=== PATIENT | female | born 1935 | race Asian ===

== ENCOUNTER 2017-10-26 17:43 | Emergency (ER) | payer OTHER, MEDICAID ==
[~2017-10-26] VITALS: Ht 154.9 cm; Wt 59.0 kg
[~2017-10-26 17:43] MED LIST: ATOR-2 PO; ATOR20TA9 PO; CEFD300C37 PO; LISI5TAB7 PO; METR500T PO
[2017-10-26] MEDS ORDERED: SODIUM CHLORIDE 0.9% 1,000 ML IV ONE (17:56)
[2017-10-26] MEDS ORDERED: SODIUM CHLORIDE FLUSH 10ML SYR IVF ONE (18:00)
[2017-10-26] MEDS ORDERED: AMIT50TA PO (18:20)
[2017-10-26] MEDS ORDERED: ALEN70TA5 PO (18:20)
[2017-10-26 18:24] LABS: PH, VENOUS 7.405 pH (7.320-7.420)
[2017-10-26 18:25] LABS: BASOPHILS # (AUTO) 0.01 x10^3/uL (0-0.1); BASOPHILS % (AUTO) 0 % (0-1); EOSINOPHILS % (AUTO) 0 % (1-7); LYMPHOCYTES # (AUTO) 0.99 x10^3/uL (1-3.4); LYMPHOCYTES % (AUTO) 10 % (22-44); MD NO; MEAN CORPUSCULAR HEMOGLOBIN 31.8 pg (27.0-34.8); MEAN CORPUSCULAR HGB CONC 34.1 g/dL (32.4-35.8); MEAN CORPUSCULAR VOLUME 93.2 fL (80-100); MEAN PLATELET VOLUME 9.9 fL (7.4-10.4); MONOCYTES # (AUTO) 0.38 x10^3/uL (0.2-0.8); MONOCYTES % (AUTO) 4 % (2-9); NEUTROPHILS # (AUTO) 8.26 x10^3/uL (1.8-6.8); NEUTROPHILS % (AUTO) 86 % (42-75); PLATELET COUNT 193 x10^3/uL (130-400); RED BLOOD COUNT 5.02 x10^6/uL (3.82-5.3); RED CELL DISTRIBUTION WIDTH 14.3 % (9.6-15.2)
[2017-10-26 18:35] LABS: ALANINE AMINOTRANSFERASE 99 U/L (12-78); ALBUMIN 3.5 g/dL (3.4-5.0); ANION GAP 13 mmol/L (5-15); CALCIUM 8.9 mg/dL (8.5-10.1); CHLORIDE 101 mmol/L (98-107); CREATININE 1.14 mg/dL (0.55-1.02)
[2017-10-26 18:37] LABS: ALKALINE PHOSPHATASE 166 U/L (45-117); TOTAL PROTEIN 7.3 g/dL (6.4-8.2)
[2017-10-26 18:41] LABS: ACETONE, SERUM Small (20mg/dL) mg/dL (Negative)
[2017-10-26 19:04] LABS: MICROSCOPIC AUTO
[2017-10-26] MEDS ORDERED: INSULIN REGULAR 100 UNITS/ML, 3ML VIAL ONE (19:05)
[2017-10-26 19:15] LABS: CULTURE INDICATED? NO
[2017-10-26] MEDS ORDERED: SODIUM CHLORIDE 0.9% 1,000ML IVBOLUS ONE ×2 (19:30→20:30)
[2017-10-26] MEDS ORDERED: INSULIN REGULAR 100 UNITS/ML, 3ML VIAL SQ-INSULIN ONE (19:30)
[2017-10-26 19:51] VITALS: BP 146/75
== END 2017-10-26 21:07 | disposition home or self-care (01) ==
LOC: ED 20:00
DX: E11.65 Type 2 diabetes mellitus with hyperglycemia (principal); E86.0 Dehydration; I10 Essential (primary) hypertension
CPT/HCPCS: 36415; 80053; 81001; 82010; 82803; 82962; 85025; 93005; 96360; 96361; 96372; 99285; J7030

== ENCOUNTER 2018-03-24 15:36 | Inpatient (IN) | payer OTHER, MEDICAID ==
[~2018-03-24] VITALS: Ht 162.6 cm; Wt 69.0 kg
[~2018-03-24 15:36] MED LIST changes: +ALEN70TA5 PO; +AMIT50TA PO
[2018-03-24] MEDS ORDERED: ONDANSETRON 2MG/ML, 2ML IVPush ONE (16:30)
[2018-03-24] MEDS ORDERED: SODIUM CHLORIDE 0.9% 1,000ML IVBOLUS ONE (16:30)
[2018-03-24] MEDS ORDERED: SODIUM CHLORIDE FLUSH 10ML SYR IVF ONE (16:30)
[2018-03-24 17:03] LABS: BASOPHILS # (AUTO) 0.02 x10^3/uL (0-0.1); BASOPHILS % (AUTO) 0 % (0-1); EOSINOPHILS # (AUTO) 0.13 x10^3/uL (0-0.4); EOSINOPHILS % (AUTO) 3 % (1-7); LYMPHOCYTES # (AUTO) 1.02 x10^3/uL (1-3.4); LYMPHOCYTES % (AUTO) 21 % (22-44); MD NO; MEAN CORPUSCULAR HEMOGLOBIN 31.7 pg (27.0-34.8); MEAN CORPUSCULAR HGB CONC 34.8 g/dL (32.4-35.8); MEAN CORPUSCULAR VOLUME 91.1 fL (80-100); MEAN PLATELET VOLUME 8.7 fL (7.4-10.4); MONOCYTES # (AUTO) 0.84 x10^3/uL (0.2-0.8); MONOCYTES % (AUTO) 18 % (2-9); NEUTROPHILS # (AUTO) 2.77 x10^3/uL (1.8-6.8); NEUTROPHILS % (AUTO) 58 % (42-75); PLATELET COUNT 132 x10^3/uL (130-400); RED BLOOD COUNT 4.08 x10^6/uL (3.82-5.3); RED CELL DISTRIBUTION WIDTH 13.6 % (9.6-15.2)
[2018-03-24 17:12] LABS: ALBUMIN 2.4 g/dL (3.4-5.0); ANION GAP 13 mmol/L (5-15); CALCIUM 7.5 mg/dL (8.5-10.1); CHLORIDE 103 mmol/L (98-107)
[2018-03-24 17:15] LABS: ALANINE AMINOTRANSFERASE 72 U/L (12-78); ALKALINE PHOSPHATASE 70 U/L (45-117); BILIRUBIN,TOTAL 1.7 mg/dL (0.2-1.0); CREATININE 0.63 mg/dL (0.55-1.02); TOTAL PROTEIN 5.6 g/dL (6.4-8.2)
[2018-03-24] MEDS ORDERED: OMNIPAQUE 350 MG/ML, 100ML BOTTLE ONE (18:04)
[2018-03-24 19:19] LABS: MICROSCOPIC INDICATED
[2018-03-24 19:29] LABS: CULTURE INDICATED? NO
[2018-03-24] MEDS ORDERED: POTASSIUM CHLORIDE 40 MEQ in SODIUM CHLORIDE 0.9% 500 ML IV ONE (20:00)
[2018-03-24] MEDS ORDERED: ONDANSETRON 2MG/ML, 2ML ONE (20:19)
[2018-03-24] MEDS ORDERED: DICY10CA3 PO (20:37)
[2018-03-24] MEDS ORDERED: METF500T27 PO (20:37)
[2018-03-24] MEDS ORDERED: CIPR250T27 PO (20:37)
[2018-03-24] MEDS ORDERED: ONDA4TAB13 SL (20:37)
[2018-03-24] MEDS ORDERED: OMEP-110 PO (20:37)
[2018-03-24 21:30] VITALS: BP 105/65
[2018-03-24] MEDS ORDERED: ACETAMINOPHEN 325 MG TABLET PO PRN (22:00)
[2018-03-24] MEDS ORDERED: PROMETHAZINE 25 MG/ML, 1ML IM PRN (22:00)
[2018-03-24] MEDS ORDERED: POLYETHYLENE GLYCOL 17 GM PACKET PO PRN (22:00)
[2018-03-24] MEDS ORDERED: ENALAPRILAT 1.25 MG/ML, 2ML IVPush PRN (22:00)
[2018-03-24] MEDS ORDERED: ONDANSETRON 2MG/ML, 2ML IVPush PRN (22:00)
[2018-03-24] MEDS ORDERED: OXYcodone IR 5MG TABLET PO PRN (22:00)
[2018-03-24] MEDS ORDERED: morphine SULFATE 10 MG/ML, 1ML IVPush PRN (22:00)
[2018-03-24] MEDS ORDERED: ONDANSETRON ODT 4 MG PO PRN (22:00)
[2018-03-24] MEDS ORDERED: DOCUSATE 100 MG CAPSULE PO PRN (22:00)
[2018-03-24] MEDS ORDERED: BISACODYL 10 MG SUPP PR PRN (22:00)
[2018-03-24 22:58] LABS: FREE T4 (FREE THYROXINE) 2.07 ng/dL (0.76-1.46); THYROID STIMULATING HORMONE 0.9 mIU/L (0.358-3.740)
[2018-03-24 23:03] LABS: HEMOGLOBIN A1C 9.8 % (4.2-6.3)
[2018-03-25] MEDS: NS + 40MEQ KCL 1,000 ML IV SCH ×3 (00:01→16:00)
[2018-03-25] MEDS: HEPARIN 5,000 UNITS/ML, 1ML SQ SCH ×3 (00:01→17:02)
[2018-03-25 00:22] LABS: MICROSCOPIC NOT IND
[2018-03-25 00:26] LABS: CULTURE INDICATED? NO
[2018-03-25] MEDS ORDERED: METF-649 PO (01:30)
[2018-03-25 01:32] VITALS: BP 105/65
[2018-03-25 03:54] VITALS: BP 127/77
[2018-03-25 05:49] LABS: BASOPHILS # (AUTO) 0.01 x10^3/uL (0-0.1); BASOPHILS % (AUTO) 0 % (0-1); EOSINOPHILS # (AUTO) 0.12 x10^3/uL (0-0.4); EOSINOPHILS % (AUTO) 2 % (1-7); LYMPHOCYTES # (AUTO) 0.96 x10^3/uL (1-3.4); LYMPHOCYTES % (AUTO) 18 % (22-44); MD NO; MEAN CORPUSCULAR HGB CONC 34.9 g/dL (32.4-35.8); MEAN CORPUSCULAR VOLUME 91.6 fL (80-100); MEAN PLATELET VOLUME 8.4 fL (7.4-10.4); MONOCYTES # (AUTO) 1.02 x10^3/uL (0.2-0.8); MONOCYTES % (AUTO) 19 % (2-9); NEUTROPHILS # (AUTO) 3.21 x10^3/uL (1.8-6.8); NEUTROPHILS % (AUTO) 60 % (42-75); PLATELET COUNT 134 x10^3/uL (130-400); RED BLOOD COUNT 3.67 x10^6/uL (3.82-5.3); RED CELL DISTRIBUTION WIDTH 13.9 % (9.6-15.2)
[2018-03-25 05:52] LABS: CHLORIDE 111 mmol/L (98-107)
[2018-03-25 06:16] LABS: ALANINE AMINOTRANSFERASE 61 U/L (12-78); ALBUMIN 2.2 g/dL (3.4-5.0); ALKALINE PHOSPHATASE 63 U/L (45-117); ANION GAP 12 mmol/L (5-15); CALCIUM 7.3 mg/dL (8.5-10.1); CHOL/HDL RATIO 9.1; CHOLESTEROL, TOTAL 181 mg/dL (140-239); HDL CHOL % 11 % (28-40); HDL CHOLESTEROL (DIRECT) 20 mg/dL (40-60); LDL CHOLESTEROL,CALCULATED 118 mg/dL (54-169); LDL/HDL RATIO 5.9 (0.5-3.0); TRIGLYCERIDES 214 mg/dL (50-200); VLDL CHOLESTEROL 43 mg/dL (0-25)
[2018-03-25] MEDS: INSULIN LISPRO 100 UNITS/ML, PEN SQ-INSULIN SCH ×4 (07:00→20:57)
[2018-03-25] MEDS ORDERED: POTASSIUM PHOSPHATE 44 MEQ in SODIUM CHLORIDE 0.9% 500 ML IV ONE (08:00)
[2018-03-25] MEDS ORDERED: MAGNESIUM SULFATE PMX 2GM/50ML 50 ML IV ONE ×2 (08:00→15:30)
[2018-03-25 12:44] LABS: CLOSTRIDIUM DIFFICILE ANTIGEN NEGATIVE; CLOSTRIDIUM DIFFICILE TOXIN NEGATIVE (Negative)
[2018-03-25] MEDS ORDERED: DIPHENOXYLATE/ATROPINE TABLET PO PRN (15:30)
[2018-03-25] MEDS ORDERED: POTASSIUM PHOSPHATE 22 MEQ in SODIUM CHLORIDE 0.9% 500 ML IV ONE (15:30)
[2018-03-25 20:54] VITALS: BP 138/84
[2018-03-25] MEDS: CALCIUM CARBONATE 500 MG TABLET PO SCH (20:57)
[2018-03-26] MEDS: HEPARIN 5,000 UNITS/ML, 1ML SQ SCH ×2 (00:55→08:15)
[2018-03-26 01:02] VITALS: BP 128/74
[2018-03-26 05:52] LABS: BASOPHILS # (AUTO) 0.02 x10^3/uL (0-0.1); BASOPHILS % (AUTO) 0 % (0-1); EOSINOPHILS # (AUTO) 0.14 x10^3/uL (0-0.4); EOSINOPHILS % (AUTO) 3 % (1-7); LYMPHOCYTES # (AUTO) 1.06 x10^3/uL (1-3.4); LYMPHOCYTES % (AUTO) 23 % (22-44); MD NO; MEAN CORPUSCULAR HEMOGLOBIN 31.8 pg (27.0-34.8); MEAN CORPUSCULAR HGB CONC 34.4 g/dL (32.4-35.8); MEAN CORPUSCULAR VOLUME 92.3 fL (80-100); MEAN PLATELET VOLUME 7.9 fL (7.4-10.4); MONOCYTES # (AUTO) 0.75 x10^3/uL (0.2-0.8); MONOCYTES % (AUTO) 16 % (2-9); NEUTROPHILS # (AUTO) 2.72 x10^3/uL (1.8-6.8); NEUTROPHILS % (AUTO) 58 % (42-75); PLATELET COUNT 154 x10^3/uL (130-400); RED BLOOD COUNT 3.78 x10^6/uL (3.82-5.3); RED CELL DISTRIBUTION WIDTH 14.5 % (9.6-15.2)
[2018-03-26 06:00] LABS: ALBUMIN 2.3 g/dL (3.4-5.0); CALCIUM 7.3 mg/dL (8.5-10.1); CHLORIDE 110 mmol/L (98-107)
[2018-03-26 06:05] LABS: ALANINE AMINOTRANSFERASE 91 U/L (12-78); ALKALINE PHOSPHATASE 69 U/L (45-117); ANION GAP 12 mmol/L (5-15); BILIRUBIN,TOTAL 1.3 mg/dL (0.2-1.0); CREATININE 0.41 mg/dL (0.55-1.02); TOTAL PROTEIN 5.3 g/dL (6.4-8.2)
[2018-03-26] MEDS: INSULIN LISPRO 100 UNITS/ML, PEN SQ-INSULIN SCH ×2 (07:00→11:00)
[2018-03-26 07:41] VITALS: BP 115/67
[2018-03-26] MEDS: CALCIUM CARBONATE 500 MG TABLET PO SCH (08:12)
[2018-03-26] MEDS ORDERED: MAGNESIUM OXIDE 400 MG TABLET PO SCH (09:00)
[2018-03-26] MEDS ORDERED: NEUTRA PHOS K 250 MG TABLET PO SCH (09:00)
[2018-03-26] MEDS ORDERED: CALC-666 PO (11:07)
[2018-03-26] MEDS ORDERED: METF500T PO (11:07)
[2018-03-26] MEDS ORDERED: MAGN400T26 PO (11:07)
[2018-03-26] MEDS ORDERED: PHOS250T3 PO (11:07)
[2018-03-26] MEDS ORDERED: DIPH1TAB6 PO (12:25)
== END 2018-03-26 12:12 | disposition home or self-care (01) | DRG 391 ==
LOC: ED 18:15 → EDIP 20:03 → 3NE 21:35 → DCLOUNGE 03-26 12:03
PROVIDERS: ADMIT Internal Medicine; ATTEND Internal Medicine
PROC: 0T9B70Z Drainage of Bladder with Drainage Device, Via Natural or Artificial Opening (ICD-10-PCS; principal; 2018-03-24)
DX: K52.9 Noninfective gastroenteritis and colitis, unspecified (principal); E43 Unspecified severe protein-calorie malnutrition; K76.0 Fatty (change of) liver, not elsewhere classified; E86.0 Dehydration; E87.6 Hypokalemia; E83.42 Hypomagnesemia; E83.39 Other disorders of phosphorus metabolism; E11.9 Type 2 diabetes mellitus without complications; E78.5 Hyperlipidemia, unspecified; I10 Essential (primary) hypertension; Z68.26 Body mass index [BMI] 26.0-26.9, adult
CPT/HCPCS: 36415; 74177; 76700; 80053; 80061; 81001; 81003; 82330; 82962; 83036; 83690; 83735; 84100; 84439; 84443; 85025; 87324; 93005; 96361; 96374; 96375; 99285; J1644; J2405; J3480; Q9967; J3475; J7030; J7040